=== PATIENT | female | born 1950 | race Caucasian/White ===

== ENCOUNTER 2018-11-01 10:42 | Emergency (ER) | payer OTHER, SELFPAY ==
[2018-11-01 11:01] VITALS: BP 156/76; PULSE 67; RESP 14; TEMP 36.8; O2SAT 96
--- NOTE | 2018-11-01 11:04 | ED_ITS ---
HPI - Fall <Ade Wu PA-C - Last Filed: 11/01/18 19:14> General Chief Complaint: Fall Stated Complaint: fell out of wheelchair, in pain Time Seen by Provider: 11/01/18 11:03 Source: patient Mode of arrival: wheelchair Limitations: no limitations History of Present Illness HPI Narrative: This 68 year old female who suffers from a neuro degenerative disorder primary lateral sclerosis comes in due to fall out of her wheelchair 6 days ago. She states that she had started to go up the ramp to her van, misjudged the angle and her chair pitched off sideways tipping onto the left side. She states she had her lower legs, face, and head primarily. She states it was not much distance, however she has had progressively worsening pain especially in her feet and lower legs. She states that she did have a bump on her head and has had some frontal headache. She denies any vision change. She states she had some nausea initially that has resolved. Headache is worse when supine but better than initial injury. She denies any pain in her upper extremities, neck, or back. Denies pain in her hips or thighs. She saw her PCP office today who advised to come in for x-rays. She notes that her feet always swell but the swelling has been worse. They are always red in color but she has noted bruising since the fall. She states that she took an extra mg of Valium last night (usually takes 1 mg, took 2 instead) that helped with spasms. She has not wanted any additional pain medication. Related Data Home Medications Medication Instructions Recorded Confirmed baclofen 10 mg PO BID 11/01/18 11/01/18 clonazepam 0.5 mg PO DAILY 11/01/18 11/01/18 conjugated estrogens [Premarin] 1 applic VAGINAL DIRECTED 11/01/18 dextromethorphan-quinidine 1 cap PO BID 11/01/18 11/01/18 [Nuedexta] diazepam 2 mg PO Q4H PRN 11/01/18 11/01/18 duloxetine 60 mg PO DAILY 11/01/18 11/01/18 hydrochlorothiazide 12.5 mg PO DAILY 11/01/18 11/01/18 lamotrigine 200 mg PO DAILY 11/01/18 11/01/18 losartan 50 mg PO DAILY 11/01/18 11/01/18 Allergies Allergy/AdvReac Type Severity Reaction Status Date / Time No Known Drug Allergies Allergy Verified 11/01/18 11:01 Review of Systems <Ade Wu PA-C - Last Filed: 11/01/18 19:14> Review of Systems ROS Unobtainable: All systems reviewed & are unremarkable except as noted in HPI and below Exam <Ade Wu PA-C - Last Filed: 11/01/18 19:14> Narrative Exam Narrative: GENERAL APPEARANCE: Patient sitting comfortably, in no distress. HEENT: Left yazidism/frontal junction there is a small patch of ecchymoses without palpable hematoma, tender. Left periorbital ecchymoses. No facial bony deformity or tenderness. PERRL, EOMI, normal ear canals, nasal and oral mucosa NECK: Supple LUNGS: Clear to auscultation bilaterally. HEART: Rate and rhythm regular without murmur, normal S1 and S2, no S3 or S4. NEUROLOGIC: Alert and oriented, appropriate speech, normal upper extremity coordination. Sensation grossly intact over the lower extremities MUSCULOSKELETAL: No point tenderness over the cervical, thoracic or lumbar spine. Full range of motion of the C-spine. No tenderness over the hips or thighs. No point tenderness or effusion over the knee joints. She is able to flex and extend the knees independently. Moderate tenderness over the left mid to distal fibular area and right tib-fib mid to distal. Mild tenderness over the ankles bilaterally where there is moderate effusion, mainly on the lateral sides. Right middle toes mildly tender along with distal medial metatarsals. Left 2nd and 3rd toes mild pain and distal metatarsal pain. DERMATOLOGIC: Facial ecchymoses as noted above, also patchy ecchymoses over the feet bilaterally, mainly middle toes VASCULAR: Bilateral feet are ruborous, pedal pulses intact, brisk cap refill. Moderate pedal edema bilaterally Initial Vital Signs Initial Vital Signs: Vital Signs Temperature 98.2 F 11/01/18 11:01 Pulse Rate 67 11/01/18 11:01 Respiratory Rate 14 11/01/18 11:01 Blood Pressure 156/76 H 11/01/18 11:01 Pulse Oximetry 96 11/01/18 11:01 <Yulia Casas DO - Last Filed: 11/02/18 07:29> Initial Vital Signs Initial Vital Signs: Vital Signs Temperature 98.2 F 11/01/18 11:01 Pulse Rate 67 11/01/18 11:01 Respiratory Rate 14 11/01/18 11:01 Blood Pressure 156/76 H 11/01/18 11:01 Pulse Oximetry 96 11/01/18 11:01 PFSH <Ade Wu PA-C - Last Filed: 11/01/18 19:14> Medical History (Updated 11/01/18 @ 13:32 by Angélica Reid RN) History of open sigmoidectomy (Chronic) CIRO (obstructive sleep apnea) (Chronic) Osteoporosis (Chronic) Hyperlipidemia (Chronic) Chronic constipation (Chronic) Degenerative disc disease, cervical (Chronic) Lateral sclerosis (Chronic) Neuro-degenerative disorders (Chronic) Surgical History (Updated 11/01/18 @ 12:54 by Ade Wu PA-C) History of laminectomy (Chronic) Social History (Updated 11/01/18 @ 12:54 by Ade Wu PA-C) Smoking Status: Former smoker Social History (Updated 11/01/18 @ 12:54 by Ade Wu PA-C) Smoking Status: Former smoker Course <Ade Wu PA-C - Last Filed: 11/01/18 19:14> Orders Ordered: ED Orders 11/01/18 11:19 CT head/brain wo con Stat XR ankle LT min 3V Stat XR ankle RT min 3V Stat XR foot LT min 3V Stat XR foot RT min 3V Stat XR tibia fibula LT 2V Stat XR tibia fibula RT 2V Stat Vital Signs - 8 hr 11/01/18 13:17 Pulse Rate 65 Respiratory Rate 17 Blood Pressure [Left Arm] 140/73 Pulse Oximetry 99 <Yulia Casas DO - Last Filed: 11/02/18 07:29> Orders Ordered: ED Orders 11/01/18 11:19 CT head/brain wo con Stat XR ankle LT min 3V Stat XR ankle RT min 3V Stat XR foot LT min 3V Stat XR foot RT min 3V Stat XR tibia fibula LT 2V Stat XR tibia fibula RT 2V Stat Vital Signs - 8 hr 11/01/18 13:17 Pulse Rate 65 Respiratory Rate 17 Blood Pressure [Left Arm] 140/73 Pulse Oximetry 99 MDM - Fall <Ade Wu PA-C - Last Filed: 11/01/18 19:14> Imaging Data CT scan - head: Radiologist's impression: [address] [address] [address] Scan Report Signed Patient: Arabella Novoa LMR#: [id number] : 8Acct:[id number] Age/Sex: 68 / FDate of Service: 11/01/18 Loc: ED Accession Number: [id number] Procedure: CT head/brain wo con Ordering Provider: Ade Wu P.A-C PROCEDURE: CT HEAD/BRAIN WO CON INDICATIONS: Status post fall, L. frontal/temporal periorbital ecchymosis. TECHNIQUE: Noncontrast 4.5 mm thick angled axial sections acquired from the foramen magnum to the vertex, with coronal and sagittal reformats. For radiation dose reduction, the following was used: automated exposure control, adjustment of mA and/or kV according to patient size. COMPARISON: None. FINDINGS: Image quality: Excellent. CSF spaces: Basal cisterns are patent. No extra-axial fluid collections. The ventricles are symmetric in size and shape. There is mild cerebral volume loss, with resultant ventricular and sulcal prominence. Brain: No intracranial hemorrhage, mass, or mass effect. There are subcortical, periventricular and deep white matter hypodensities consistent with mild chronic small vessel ischemic changes. There is intracranial internal carotid artery atherosclerosis. Skull and face: There is mild left periorbital soft tissue swelling. Calvarium and visualized facial bones appear intact, without suspicious lesions. Sinuses: Visualized sinuses and mastoids are clear. IMPRESSION: 1. No acute intracranial abnormality. 2. Mild chronic white matter small vessel ischemic changes and cerebral volume loss. Dictated by: Easton Krishna M.D. on 11/01/2018 at 11:49 Approved by: Easton Krishna M.D. on 11/01/2018 at 11:51 ankles: Radiologist's impression: [facility] DATE TYPE STATUS AUTHOR Hx 11/01/18 11:19 Matthews,Muneer 11/01/18 11:19 Matthews,Muneer 11/01/18 11:19 Matthews,Muneer 11/01/18 11:19 Matthews,Muneer 11/01/18 11:19 Easton Krishna 11/01/18 11:19 MathtewsJonasfrancesco 11/01/18 11:19 MatthewsPhuong rose Sherry L 68, 1950 REG ER, ED.LOC - Main ED: R06 52.163kg Fall Search Chart No Data to Display No Data to Display Today 11:01 Arabella Novoa 68 F [address] [address] XRay Report Signed Patient: Arabella Novoa LMR#: [id number] : 8Acct:[id number] Age/Sex: 68 / FDate of Service: 11/01/18 Loc: ED Accession Number: [id number] Procedure: XR ankle RT min 3V Ordering Provider: Ade Wu P.A-C PROCEDURE: XR ANKLE RT MIN 3V INDICATIONS: fall, pain TECHNIQUE: 3 views of the ankle were acquired. COMPARISON: None. FINDINGS: Bones: No fractures or dislocations. Ankle mortise is normally aligned. No suspicious bony lesions. Soft tissues: No tibiotalar joint effusion. Achilles tendon appears normal. IMPRESSION: No acute fracture. No osseous lesion. If symptoms and/or clinical suspicion for pathology persist, further assessment with repeat, or advanced imaging (e.g., CT, MRI, or bone scan) may be helpful for further assessment. Dictated by: Phuong Matthews M.D. on 11/01/2018 at 11:32 Approved by: Phuong Matthews M.D. on 11/01/2018 at 11:[address] [address] XRay Report Signed Patient: Arabella Novoa LMR#: [id number] : 8Acct:[id number] Age/Sex: 68 / FDate of Service: 11/01/18 Loc: ED Accession Number: [id number] Procedure: XR ankle LT min 3V Ordering Provider: Ade Wu P.A-C PROCEDURE: XR ANKLE LT MIN 3V INDICATIONS: fall, pain TECHNIQUE: 3 views of the ankle were acquired. COMPARISON: None. FINDINGS: Bones: No fractures or dislocations. Ankle mortise is normally aligned. No suspicious bony lesions. Soft tissues: No tibiotalar joint effusion. Achilles tendon appears normal. IMPRESSION: No acute fracture. No osseous lesion. If symptoms and/or clinical suspicion for pathology persist, further assessment with repeat, or advanced imaging (e.g., CT, MRI, or bone scan) may be helpful for further assessment. Dictated by: Phuong Matthews M.D. on 11/01/2018 at 11:31 Approved by: Phuong Matthews M.D. on 11/01/2018 at 11:32 bilat tib fib: Radiologist's impression: [address] [address] XRay Report Signed Patient: Arabella Novoa R#: [id number] : 1950cct:[id number] Age/Sex: 68 / FDate of Service: 11/01/18 Loc: ED Accession Number: [id number] Procedure: XR tibia fibula RT 2V Ordering Provider: Ade Wu P.A-C PROCEDURE: XR TIBIA FUBULA RT 2V INDICATIONS: fall, pain TECHNIQUE: 2 views of the tibia and fibula were acquired. COMPARISON: None. FINDINGS: Bones: No fractures or dislocations. No suspicious bony lesions. Soft tissues: No suspicious soft tissue calcifications or masses. IMPRESSION: No acute fracture. No osseous lesion. If symptoms and/or clinical suspicion for pathology persist, further assessment with repeat, or advanced imaging (e.g., CT, MRI, or bone scan) may be helpful for further assessment. Dictated by: Phuong Matthews M.D. on 11/01/2018 at 11:36 Approved by: Phuong Matthews M.D. on 11/01/2018 at 11:[address] [address] XRay Report Signed Patient: Arabella Novoa LMR#: [id number] : 8Acct:[id number] Age/Sex: 68 / FDate of Service: 11/01/18 Loc: ED Accession Number: [id number] Procedure: XR tibia fibula LT 2V Ordering Provider: Ade Wu P.A-C PROCEDURE: XR TIBIA FIBULA RT 2V INDICATIONS: fall pain TECHNIQUE: 2 views of the tibia and fibula were acquired. COMPARISON: None. FINDINGS: Bones: No fractures or dislocations. No suspicious bony lesions. Soft tissues: No suspicious soft tissue calcifications or masses. IMPRESSION: No acute fracture. No osseous lesion. If symptoms and/or clinical suspicion for pathology persist, further assessment with repeat, or advanced imaging (e.g., CT, MRI, or bone scan) may be helpful for further assessment. Dictated by: Phuong Matthews M.D. on 11/01/2018 at 11:35 Approved by: Phuong Matthews M.D. on 11/01/2018 at 11:35 feet bilat: Radiologist's impression: [address] [address] XRay Report Signed Patient: Arabella Novoa R#: [id number] : 8Acct:[id number] Age/Sex: 68 / FDate of Service: 11/01/18 Loc: ED Accession Number: [id number] Procedure: XR foot RT min 3V Ordering Provider: Ade Wu P.A-C PROCEDURE: XR FOOT RT MIN 3V INDICATIONS: fall, pain TECHNIQUE: 3 views of the foot were acquired. COMPARISON: None. FINDINGS: Bones: No fractures or dislocations. No suspicious bony lesions. Soft tissues: No tibiotalar joint effusion. Achilles tendon appears normal. IMPRESSION: No acute fracture. No osseous lesion. If symptoms and/or clinical suspicion for pathology persist, further assessment with repeat, or advanced imaging (e.g., CT, MRI, or bone scan) may be helpful for further assessment. Dictated by: Phuong Matthews M.D. on 11/01/2018 at 11:34 Approved by: Phuong Matthews M.D. on 11/01/2018 at 11:35 Arabella Novoa L 68 F [address] [address] XRay Report Signed Patient: Arabella Novoa LMR#: [id number] : 8Acct:[id number] Age/Sex: 68 / FDate of Service: 11/01/18 Loc: ED Accession Number: [id number] Procedure: XR foot LT min 3V Ordering Provider: Ade Wu P.A-C PROCEDURE: XR FOOT LT MIN 3V INDICATIONS: fall, pain TECHNIQUE: 3 views of the foot were acquired. COMPARISON: None. FINDINGS: Bones: No fractures or dislocations. No suspicious bony lesions. Soft tissues: No tibiotalar joint effusion. Achilles tendon appears normal. IMPRESSION: No acute fracture. No osseous lesion. If symptoms and/or clinical suspicion for pathology persist, further assessment with repeat, or advanced imaging (e.g., CT, MRI, or bone scan) may be helpful for further assessment. Dictated by: Phuong Matthews M.D. on 11/01/2018 at 11:33 Approved by: Phuong Matthews M.D. on 11/01/2018 at 11:34 Discharge Plan Departure Patient Disposition: Home Clinical Impression: Fall (on)(from) incline, initial encounter, Contusion of multiple sites, History of open sigmoidectomy Discharge Date/Time: 11/01/18 13:32 Interventions: ED Discharge Assessment Last Done: 11/01/18 13:32 Instructions: DI for Ankle Pain, DI for Foot Sprain Activity Restrictions/Additional Instructions: As we talked about, your x-rays do not show any broken bone or acute problem today, however you have significant swelling and bruising, and from the twisting you described to me it is likely that you sprained these areas as well. Please follow-up with your PCP next week for recheck as you may need additional studies if you are not doing better. Use the compression wraps as helpful for pain and swelling. Continue your additional diazepam if needed for spasm. Prescriptions: No Action clonazepam 0.5 mg Tablet 0.5 mg PO DAILY RF: 0 diazepam 2 mg Tablet 2 mg PO Q4H PRN (Reason: Anxiety) RF: 0 baclofen 10 mg Tablet 10 mg PO BID RF: 0 hydrochlorothiazide 12.5 mg Capsule 12.5 mg PO DAILY RF: 0 duloxetine 60 mg Capsule,Delayed Release(Dr/Ec) 60 mg PO DAILY RF: 0 losartan 50 mg Tablet 50 mg PO DAILY RF: 0 lamotrigine 200 mg Tablet 200 mg PO DAILY RF: 0 Premarin 0.625 mg/gram Cream 1 applic vaginal DIRECTED RF: 0 Nuedexta 20-10 mg Capsule 1 cap PO BID RF: 0 Referrals: Sukhdeep Cintron MD [Primary Care Provider] - <Yulia Casas DO - Last Filed: 11/02/18 07:29> Cosign ED Attending Cosignature Attestation: I was immediately available in the department for consultation. Documentation has been reviewed. I agree with assessment and plan.
--- NOTE | 2018-11-01 11:19 | DI.RAD.S_ITS ---
PROCEDURE: XR TIBIA FUBULA RT 2V INDICATIONS: fall, pain TECHNIQUE: 2 views of the tibia and fibula were acquired. COMPARISON: None. FINDINGS: Bones: No fractures or dislocations. No suspicious bony lesions. Soft tissues: No suspicious soft tissue calcifications or masses. IMPRESSION: No acute fracture. No osseous lesion. If symptoms and/or clinical suspicion for pathology persist, further assessment with repeat, or advanced imaging (e.g., CT, MRI, or bone scan) may be helpful for further assessment. Dictated by: Phuong Matthews M.D. on 11/01/2018 at 11:36 Approved by: Phuong Matthews M.D. on 11/01/2018 at 11:36
--- NOTE | 2018-11-01 11:19 | DI.RAD.S_ITS ---
PROCEDURE: XR FOOT LT MIN 3V INDICATIONS: fall, pain TECHNIQUE: 3 views of the foot were acquired. COMPARISON: None. FINDINGS: Bones: No fractures or dislocations. No suspicious bony lesions. Soft tissues: No tibiotalar joint effusion. Achilles tendon appears normal. IMPRESSION: No acute fracture. No osseous lesion. If symptoms and/or clinical suspicion for pathology persist, further assessment with repeat, or advanced imaging (e.g., CT, MRI, or bone scan) may be helpful for further assessment. Dictated by: Phuong Matthews M.D. on 11/01/2018 at 11:33 Approved by: Phuong Matthews M.D. on 11/01/2018 at 11:34
--- NOTE | 2018-11-01 11:19 | DI.RAD.S_ITS ---
PROCEDURE: XR ANKLE RT MIN 3V INDICATIONS: fall, pain TECHNIQUE: 3 views of the ankle were acquired. COMPARISON: None. FINDINGS: Bones: No fractures or dislocations. Ankle mortise is normally aligned. No suspicious bony lesions. Soft tissues: No tibiotalar joint effusion. Achilles tendon appears normal. IMPRESSION: No acute fracture. No osseous lesion. If symptoms and/or clinical suspicion for pathology persist, further assessment with repeat, or advanced imaging (e.g., CT, MRI, or bone scan) may be helpful for further assessment. Dictated by: Phuong Matthews M.D. on 11/01/2018 at 11:32 Approved by: Phuong Matthews M.D. on 11/01/2018 at 11:32
--- NOTE | 2018-11-01 11:19 | DI.RAD.S_ITS ---
PROCEDURE: XR FOOT RT MIN 3V INDICATIONS: fall, pain TECHNIQUE: 3 views of the foot were acquired. COMPARISON: None. FINDINGS: Bones: No fractures or dislocations. No suspicious bony lesions. Soft tissues: No tibiotalar joint effusion. Achilles tendon appears normal. IMPRESSION: No acute fracture. No osseous lesion. If symptoms and/or clinical suspicion for pathology persist, further assessment with repeat, or advanced imaging (e.g., CT, MRI, or bone scan) may be helpful for further assessment. Dictated by: Phuong Matthews M.D. on 11/01/2018 at 11:34 Approved by: Phuong Matthews M.D. on 11/01/2018 at 11:35
--- NOTE | 2018-11-01 11:19 | DI.RAD.S_ITS ---
PROCEDURE: XR TIBIA FIBULA RT 2V INDICATIONS: fall pain TECHNIQUE: 2 views of the tibia and fibula were acquired. COMPARISON: None. FINDINGS: Bones: No fractures or dislocations. No suspicious bony lesions. Soft tissues: No suspicious soft tissue calcifications or masses. IMPRESSION: No acute fracture. No osseous lesion. If symptoms and/or clinical suspicion for pathology persist, further assessment with repeat, or advanced imaging (e.g., CT, MRI, or bone scan) may be helpful for further assessment. Dictated by: Phuong Matthews M.D. on 11/01/2018 at 11:35 Approved by: Phuong Matthews M.D. on 11/01/2018 at 11:35
--- NOTE | 2018-11-01 11:19 | DI.CT.S_ITS ---
PROCEDURE: CT HEAD/BRAIN WO CON INDICATIONS: Status post fall, L. frontal/temporal periorbital ecchymosis. TECHNIQUE: Noncontrast 4.5 mm thick angled axial sections acquired from the foramen magnum to the vertex, with coronal and sagittal reformats. For radiation dose reduction, the following was used: automated exposure control, adjustment of mA and/or kV according to patient size. COMPARISON: None. FINDINGS: Image quality: Excellent. CSF spaces: Basal cisterns are patent. No extra-axial fluid collections. The ventricles are symmetric in size and shape. There is mild cerebral volume loss, with resultant ventricular and sulcal prominence. Brain: No intracranial hemorrhage, mass, or mass effect. There are subcortical, periventricular and deep white matter hypodensities consistent with mild chronic small vessel ischemic changes. There is intracranial internal carotid artery atherosclerosis. Skull and face: There is mild left periorbital soft tissue swelling. Calvarium and visualized facial bones appear intact, without suspicious lesions. Sinuses: Visualized sinuses and mastoids are clear. IMPRESSION: 1. No acute intracranial abnormality. 2. Mild chronic white matter small vessel ischemic changes and cerebral volume loss. Dictated by: Easton Krishna M.D. on 11/01/2018 at 11:49 Approved by: Easton Krishna M.D. on 11/01/2018 at 11:51
--- NOTE | 2018-11-01 11:19 | DI.RAD.S_ITS ---
PROCEDURE: XR ANKLE LT MIN 3V INDICATIONS: fall, pain TECHNIQUE: 3 views of the ankle were acquired. COMPARISON: None. FINDINGS: Bones: No fractures or dislocations. Ankle mortise is normally aligned. No suspicious bony lesions. Soft tissues: No tibiotalar joint effusion. Achilles tendon appears normal. IMPRESSION: No acute fracture. No osseous lesion. If symptoms and/or clinical suspicion for pathology persist, further assessment with repeat, or advanced imaging (e.g., CT, MRI, or bone scan) may be helpful for further assessment. Dictated by: Phuong Matthews M.D. on 11/01/2018 at 11:31 Approved by: Phuong Matthews M.D. on 11/01/2018 at 11:32
--- NOTE | 2018-11-01 11:38 | PC.NURSE ---
At baseline neuro functioning.
[2018-11-01 13:17] VITALS: BP 140/73; PULSE 65; RESP 17; O2SAT 99
== END 2018-11-01 13:32 | disposition home or self-care (01) ==
PROVIDERS: Emergency Provider Internal Medicine; PCP Family Medicine
DX: S00.83XA Contusion of other part of head, initial encounter (principal); M79.605 Pain in left leg; M79.604 Pain in right leg; R51 Headache; Z98.890 Other specified postprocedural states; W05.0XXA Fall from non-moving wheelchair, initial encounter; M25.572 Pain in left ankle and joints of left foot; M25.571 Pain in right ankle and joints of right foot
CPT/HCPCS: 70450; 73590; 73610; 73630; 99282; 99284

== ENCOUNTER → 2021-05-25 08:35 | Outpatient (CLI) | payer MEDICARE, SELFPAY ==
[2021-05-25 20:00] LABS: COVID19 - ORCAS (NP or Nasal) Negative (Negative)
== END ==
PROVIDERS: PCP Family Medicine; Visit Provider Physician Assistant
DX: Z20.822 Contact with and (suspected) exposure to COVID-19 (principal); R05.9 Cough, unspecified
CPT/HCPCS: C9803; U0003

== ENCOUNTER → 2021-06-15 10:14 | Outpatient (CLI) | payer MEDICARE, SELFPAY ==
[2021-06-15 19:53] LABS: COVID19 - ORCAS (NP or Nasal) Negative (Negative)
== END ==
PROVIDERS: PCP Family Medicine; Visit Provider Physician Assistant
DX: Z20.822 Contact with and (suspected) exposure to COVID-19 (principal)
CPT/HCPCS: U0003

== ENCOUNTER → 2022-01-06 11:30 | Outpatient (CLI) | payer MEDICARE, SELFPAY ==
--- NOTE | 2022-01-06 | DI.US.S_ITS ---
PROCEDURE: US CAROTID DOPPLER BI INDICATIONS: CAROTID STENOSIS TECHNIQUE: Color and pulse Doppler interrogation was performed of both carotid systems, with image documentation and velocity measurements. COMPARISON: None. FINDINGS: Stenosis calculations are based on SRU (Society of Radiologists in Ultrasound) criteria. Right side: Brachial blood pressure: 131/69 mm Hg. Common carotid artery peak systolic velocity: 52 cm/sec. Internal carotid artery peak systolic velocity: 88 cm/sec. Internal carotid artery end diastolic velocity: 28 cm/sec. External carotid artery peak systolic velocity: 90 cm/sec. ICA/CCA peak systolic ratio: 1.5 . Gomes scale imaging description: Moderate plaque Percent internal carotid artery stenosis: Less than 50% . Vertebral artery: Flow direction is antegrade. Left side: Brachial blood pressure: 118/68 mm Hg. Common carotid artery peak systolic velocity: 80 cm/sec. Internal carotid artery peak systolic velocity: 103 cm/sec. Internal carotid artery end diastolic velocity: 35 cm/sec. External carotid artery peak systolic velocity: 84 cm/sec. ICA/CCA peak systolic ratio: 1.3 . Gomes scale imaging description: Moderate scattered plaque. Percent internal carotid artery stenosis: Less than 50% . Vertebral artery: Flow direction is antegrade. IMPRESSION: Less than 50% bilateral internal carotid artery stenosis. Dictated by: Gigi Hills [facility] Interpreted: Marija Campos MD on 01/06/2022 at 13:05 Transcribed by: STACY on 01/06/2022 at 13:06 Approved by: Marija Campos M.D. on 01/06/2022 at 15:27
--- NOTE | 2022-01-06 | DI.US.S_ITS ---
PROCEDURE: US RENAL COMPLETE INDICATIONS: KIDNEY STONE TECHNIQUE: Real-time scanning was performed of the kidneys and bladder, with image documentation. COMPARISON: None. FINDINGS: Kidneys: Atrophy of the right kidney measuring 6.5 cm long; left kidney measures 10.2 cm long. Right renal cortical thickness is 1.1 cm; left renal cortical thickness is 1.6 cm. Renal cortical echotexture is normal. No hydronephrosis. 2 nonobstructing left renal calcifications, largest measuring 6.3 mm. . No suspicious solid mass lesions. Bladder: Urinary bladder decompressed and suboptimally visualized. Miscellaneous: No free pelvic fluid. IMPRESSION: 1. 2 non-obstructing left renal calcifications. 2. Atrophy of the right kidney and 6.5 cm in length. Dictated by: Gigi PAULSON Interpreted: Marija Campos MD on 01/06/2022 at 13:03 Transcribed by: STACY on 01/06/2022 at 13:05 Approved by: Marija Campos M.D. on 01/06/2022 at 15:26
--- NOTE | 2022-01-06 | DI.MG.S_ITS ---
BILATERAL DIGITAL SCREENING MAMMOGRAM 3D/2D WITH CAD: 01/06/2022 CLINICAL: Routine screening. Comparison is made to exams dated: 07/31/2018 mammogram, 02/14/2016 mammogram, and 01/12/2016 mammogram - [facility]. Both breasts are heterogeneously dense, which may obscure small masses (category c / 51-75% glandular tissue). Current study was also evaluated with a Computer Aided Detection (CAD) system. No significant masses, calcifications, or other findings are seen in either breast. There has been no significant interval change. IMPRESSION: NEGATIVE There is no mammographic evidence of malignancy. A 1 year screening mammogram is recommended. Based on the Tyrer Cuzick model (a risk assessment model) the patient's lifetime risk is 5.5% and her 10 year risk is 4.5%. According to the ACR, ACS, and NCCN guidelines, an annual breast MRI exam along with mammogram is recommended if the patient's lifetime risk is 20% or greater. This exam was interpreted at Station ID: [id number]. NOTE: For mammograms, a report in lay terms will be sent to the patient. Approximately 15% of breast malignancies will not be visualized mammographically. In the management of a palpable breast mass, a negative mammogram must not discourage biopsy of a clinically suspicious lesion. Electronically Signed By: Erwin bolden/michael:01/06/2022 16:25:20 letter sent: Normal Exam ACR BI-RADS Category 1: Negative 3341F
== END ==
PROVIDERS: PCP Family Medicine; Referring Provider Family Medicine; Visit Provider Family Medicine
DX: Z12.31 Encounter for screening mammogram for malignant neoplasm of breast (principal); I65.23 Occlusion and stenosis of bilateral carotid arteries; N20.0 Calculus of kidney; N26.1 Atrophy of kidney (terminal)
CPT/HCPCS: 76770; 77063; 77067; 93880

== ENCOUNTER 2022-05-16 12:16 | Day surgery (SDC) | payer MEDICARE, SELFPAY ==
--- NOTE | 2022-05-16 | PATH_ITS ---
[facility] Accession Number: [id number] . 01 Material submitted: . perianal area - PERIANAL TISSUE . 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 No evidence of invasive carcinoma. MRV 05/19/2022 1614 Local . 01 Electronically signed: . Blanca Pollack MD, Pathologist NPI- [id number] . 01 Gross description: . PERIANAL TISSUE: Received in formalin are multiple fragment(s) of pinto, soft tissue measuring 1.0 x 0.7 x 0.1 cm in aggregate submitted entirely in 1 cassette(s) /CPE 05/17/2022 0855 Local . 01 Microscopic: . A D2-40 immunohistochemical stain was performed to highlight lymphatics. Additional levels were also examined. There is no definite evidence of invasion. . * This test was developed and its performance characteristics determined by [facility]. It has not been cleared or approved by the U.S. Food and Drug Administration. The FDA has determined that such clearance or approval is not necessary. This test is used for clinical purposes. It should not be regarded as investigational or for research. . 01 Pathologist provided ICD-10: K62.5, D01.3 . 01 CPT . 570052, C93182 Specimen Comment: A courtesy copy of this report has been sent to [phone] Performed at: 01 [facility] [address] [place] [address], [place], [place] [id number] MD Easton Tiraod MD Phone: [phone]
[2022-05-16] MEDS: LACTATED RINGERS 1,000 ML 200 ML IV (13:12)
[2022-05-16 13:14] VITALS: BP 138/68; PULSE 66; RESP 18; TEMP 36.8; O2SAT 99; BMI 19.5
--- NOTE | 2022-05-16 13:34 | PM.HP.1 ---
History of Present Illness History of Present Illness Date Patient Seen: 05/16/22 Time Patient Seen: 13:34 Chief complaint: SDC Narrative: 72-year-old woman with rectal bleeding here for diagnostic colonoscopy and possible hemorrhoidal banding. No significant interval changes in health. She continues to have rectal bleeding bright nature. Please refer to the H&P from March 2022 for further detail. Patient History Medical History Adductor spastic dysphonia Bilateral carpal tunnel syndrome Chronic constipation Contracture, left knee Degenerative disc disease, cervical Dependence on wheelchair WISE (dyspnea on exertion) Dysarthria Emotional lability Essential (primary) hypertension Frequent falls History of open sigmoidectomy History of urinary incontinence Hyperlipidemia Lateral sclerosis Major depressive disorder, recurrent, moderate Nasal congestion Neuro-degenerative disorders Neuromuscular disease Neuropathy Oropharyngeal dysphagia CIRO (obstructive sleep apnea) Osteoporosis Other disorders of lung Other intervertebral disc displacement, lumbar region 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 Postmenopausal atrophic vaginitis Presence of other specified devices Sciatica, unspecified side Scoliosis (and kyphoscoliosis), idiopathic Spasticity Urge incontinence Surgical History History of laminectomy Family & Social History Family History Mother Insomnia Depression Anxiety Family/Other Diabetes mellitus Social History: household members none lives independently Yes Tobacco & Substance use: Smoking Status Former smoker alcohol intake never alcohol intake frequency holiday/special occasion Substance Use Type does not use Meds Home Medications and Allergies Home Medications Medication Instructions Recorded Confirmed Type conjugated estrogens 0.625 mg/gram 1 applic vaginal DIRECTED 11/01/18 05/16/22 History vaginal cream (Premarin) duloxetine 60 mg capsule,delayed 60 mg PO DAILY 11/01/18 05/16/22 History release hydrochlorothiazide 12.5 mg capsule 12.5 mg PO DAILY 11/01/18 05/16/22 History lamotrigine 200 mg tablet 200 mg PO DAILY 11/01/18 05/16/22 History losartan 50 mg tablet 50 mg PO DAILY 11/01/18 05/16/22 History aspirin 81 mg tablet,delayed 81 mg PO DAILY 10/04/20 05/16/22 History release (Roberto Low Dose Aspirin) coenzyme Q10 PO 10/04/20 03/30/22 History diazepam 2 mg tablet 2 mg PO Q8H PRN Anxiety 10/04/20 05/16/22 History omeprazole 40 mg capsule,delayed 40 mg PO DAILY 10/04/20 05/16/22 History release Allergies Allergy/AdvReac Type Severity Reaction Status Date / Time No Known Drug Allergies Allergy Verified 05/16/22 12:56 Exam Vital Signs (past 8 hours): - 05/16/22 13:14 Temperature 98.2 F Pulse Rate 66 Respiratory Rate 18 Blood Pressure 138/68 Pulse Oximetry 99 Oxygen Delivery Method Room Air Oxygen Delivery Method Room Air Narrative Exam Narrative: General elderly woman alert oriented Abdomen soft nontender nondistended Assessment & Plan Assessment and plan (1) Rectal bleeding: Status: Acute Assessment & Plan narrative: 72-year-old woman with rectal bleeding here for diagnostic colonoscopy and possible hemorrhoidal banding. Overview of the procedure was discussed patient. Procedural risks including bleeding, missed diagnosis, intestinal perforation, anesthetic complication were discussed. Questions answered she is in agreement with this plan Time Spent With Patient Critical Care time: I spent a total of [] minutes of critical care time on this patient's care today; this time is exclusive of procedural time.
[2022-05-16 13:52] LABS: COVID19 -Nasal RAPID Negative (Negative)
--- NOTE | 2022-05-16 13:59 | PM.OP.COLON ---
Operative Date/Time/Diagnoses Date of procedure: 05/16/22 Time of procedure: 13:59 Pre-op diagnosis: Rectal bleeding Post-op diagnosis: same Procedure & Clinicians Study performed: Colonoscopy and hemorrhoidal banding Same procedure as scheduled: Yes Indications: Rectal bleeding Procedure Notes Procedure in detail: The history and physical was performed/updated and the patient is ASA class is 3. The procedure was discussed in detail with the patient. Potential risks complications including infection, bleeding, missed diagnosis, perforation, need for surgery, and were explained. Their questions were answered and informed consent was obtained. Patient was brought to the procedure room and placed standard monitoring equipment. The patient's vital signs were monitored continuously throughout the entire procedure. Prior to starting time-out was performed. The patient was placed in the left lateral recumbent position. Procedural sedation was administered by anesthesia. Examination began with a thorough inspection of the perianal. There was an ulcerated 3 cm diameter raised lesion on the perianal tissue posterior right which was biopsied with forceps. The colonoscopy scope was then placed into the anal canal and was advanced to the cecum, which was identified by the ileocecal valve, and the confluence of the taenia. The scope was then slowly withdrawn examining colon thoroughly in all directions, irrigating it of any residual stool. FINDINGS 1. Perianal mass/lesion 2. No polyps 3. Minimal internal hemorrhoids The patient tolerated the procedure well. They will be discharged once criteria are met. The prep was of good/excellent quality. The withdrawl time was 12 minutes. Specimen(s): other (Perianal tissue) Impression: Perianal mass/abnormality versus extensive fissure Post-procedure Recommendations: High fiber diet Plan for aftercare: Will notify with biopsy results Disposition: same day surgery
[2022-05-16 14:34] VITALS: BP 108/55; PULSE 65; RESP 16; TEMP 36.2; O2SAT 100
[2022-05-16 14:39] VITALS: BP 127/75; PULSE 62; RESP 16; TEMP 36.8; O2SAT 98
[2022-05-16 14:48] VITALS: BP 106/60; PULSE 61; RESP 16; O2SAT 98
[2022-05-16 14:55] VITALS: BP 117/66; PULSE 65; RESP 18; TEMP 36.4; O2SAT 98
[2022-05-16 16:20] VITALS: BP 156/73; PULSE 72; RESP 20; TEMP 36.4; O2SAT 97
--- NOTE | 2022-05-16 16:50 | SUR.PHASEII ---
Report given to
== END 2022-05-16 17:35 | disposition home or self-care (01) ==
PROVIDERS: PCP Family Medicine; Referring Provider Surgery; Visit Provider Surgery
PROC: 0DJD8ZZ Inspection of Lower Intestinal Tract, Via Natural or Artificial Opening Endoscopic (ICD-10-PCS; CPT 45378; principal; 2022-05-16 12:45)
DX: D01.3 Carcinoma in situ of anus and anal canal (principal); K64.8 Other hemorrhoids; Z20.822 Contact with and (suspected) exposure to COVID-19
CPT/HCPCS: 45380; 87635; C9803; J2704

== ENCOUNTER → 2023-12-25 11:33 | Outpatient (CLI) | payer MEDICARE, SELFPAY ==
--- NOTE | 2023-12-25 11:34 | DI.MRI.S_ITS ---
PROCEDURE: MR ANKLE LT WO CON INDICATIONS: pain/swelling left foot. osteoporosis. paraparesis left side TECHNIQUE: Noncontrast sagittal T1 spin echo and T2 fast spin echo with fat saturation, axial proton density fast spin echo and T2 fast spin echo with fat saturation, coronal T1 spin echo and T2 fast spin echo with fat saturation through the ankle/hindfoot. COMPARISON: None. FINDINGS: Image quality: Excellent. Bones and joints: Diffuse soft tissue swelling and edema throughout distal lower leg extending to midfoot and hindfoot is seen. No discrete drainable fluid collection is noted. [id number] midfoot and hindfoot joint osteoarthritic changes are seen with joint space narrowing and subchondral sclerosis. There is no marrow edema. No fracture or dislocation. Small osteochondral injury involving medial weight-bearing portion of talar dome is seen measures 3 mm in size. 4 mm osteochondral injury involving posterior medial aspect of distal tibial plafond is also seen. No significant joint effusion or intra-articular loose bodies. Medial structures: The posterior tibialis, flexor digitorum longus, and flexor hallucis longus tendons are intact. The posterior tibial neurovascular bundle appears normal within the tarsal tunnel, without extrinsic mass effect. The deltoid ligament and spring ligament are grossly intact. Lateral structures: The anterior talofibular ligament appears thickened with intrasubstance T2 hyperintense signal. The calcaneofibular, and posterior talofibular ligaments appear intact. More superiorly, the anterior and posterior tibiofibular ligaments appear intact, as is the intermalleolar ligament. The tibiofibular syndesmosis is normal in width at 2 mm or less. The peroneus longus and brevis tendons demonstrate normal location and morphology. Adjacent bony peroneal tubercle and retrotrochlear prominence are normal in size. The sinus tarsi demonstrates normal fatty signal, without edema, fibrosis, or cyst formation. Visualized sinus tarsi components (cervical ligament, interosseous talocalcaneal ligament, roots of the inferior extensor retinaculum) appear normal. Anterior structures: The tibialis anterior, extensor hallucis longus, and extensor digitorum longus tendons appear intact. The dorsal talonavicular ligament appears intact. Posterior and plantar structures: Achilles tendon is intact. Medial and lateral bands of the plantar fascia are of normal thickness. No abductor digiti quinti muscle atrophy to suggest Stovall neuropathy. IMPRESSION: 1. Diffuse soft tissue swelling in distal lower leg extending to hindfoot and midfoot. No discrete drainable fluid collection. 2. [id number] midfoot and hindfoot joint osteoarthritis most notably involving tibiotalar joint with small osteochondral injuries involving medial weight-bearing portion of talar dome and posterior medial aspect of distal tibial plafond. No fracture or dislocation. Small joint effusion, no loose bodies. 3. Low-grade ATFL sprain/intrasubstance partial-thickness tear. No full-thickness ankle ligament rupture. 4. Ankle tendons are grossly intact. Dictated by: Aristeo Bravo M.D. on 12/25/2023 at 21:08 Approved by: Aristeo Bravo M.D. on 12/25/2023 at 21:16
--- NOTE | 2023-12-25 11:34 | DI.MRI.S_ITS ---
PROCEDURE: MRFOOT LT WO CON INDICATIONS: pain/swelling left foot. osteoporosis. paraparesis left side TECHNIQUE: Multiphasic, multisequence MRI of the forefoot was performed, without intravenous contrast administration. COMPARISON: [facility] ([facility]), CR, XR FOOT LT MIN 3V, 12/03/2023, 9:37. FINDINGS: Image quality: Excellent. Bones and joints: No bone marrow contusions or metatarsal stress fractures. Osteoarthritic changes are noted throughout midfoot and forefoot joints more notably involving MTP joints. No suspicious bony lesions. Soft tissues: Marked soft tissue edema and swelling over dorsal aspect of midfoot and forefoot is seen. No discrete drainable fluid collection is identified. No gross soft tissue mass. The visualized plantar foot muscles demonstrate normal signal and bulk. Visualized flexor and extensor tendons appear intact, without tenosynovitis. The distal insertions of the peroneus brevis and longus tendons appear intact. The principal Lisfranc ligament appears intact. No soft tissue ganglion cysts or bursal fluid collections. Sagittal images demonstrate no evidence for plantar plate tears. IMPRESSION: 1. Significant soft tissue edema and swelling over dorsal aspect of midfoot and forefoot suggestive of cellulitis. No discrete drainable abscess collection. 2. Mild midfoot and forefoot joint osteoarthritis. No fracture or dislocation. No metatarsal stress fractures. No suspicious bony lesions. 3. No plantar foot muscle signal abnormalities. Extensor and flexor tendons are grossly intact. Lisfranc ligament is intact. Dictated by: Aristeo Bravo M.D. on 12/25/2023 at 21:05 Approved by: Aristeo Bravo M.D. on 12/25/2023 at 21:08
== END ==
PROVIDERS: PCP Family Medicine; Referring Provider Family Medicine; Visit Provider Family Medicine
DX: G12.23 Primary lateral sclerosis (principal); M19.072 Primary osteoarthritis, left ankle and foot; S93.492A Sprain of other ligament of left ankle, initial encounter; M79.672 Pain in left foot; M81.0 Age-related osteoporosis without current pathological fracture; M79.89 Other specified soft tissue disorders; M25.472 Effusion, left ankle
CPT/HCPCS: 73718; 73721

== ENCOUNTER → 2024-01-16 14:04 | Outpatient (CLI) | payer MEDICARE, SELFPAY ==
[2024-01-16 19:34] LABS: D Dimer 1322 ng/ml (<500)
[2024-01-16 19:54] LABS: Add Manual Diff / Slide Review NO; Basophils Absolute Auto 0 /uL (0-100); Basophils Percent Auto 0.7 % (0-2); Eosinophils Absolute Auto 0 /uL (0-450); Eosinophils Percent Auto 0.5 % (2-4); Hematocrit 34.6 % (36-46); Hemoglobin 11.2 g/dL (12.0-16.0); Lymphocytes Absolute Auto 900 /uL (1100-4500); Lymphocytes Percent Auto 18.9 % (25-40); Mean Corpuscular HGB Conc 32.4 % (30-36); Mean Corpuscular Hemoglobin 26.7 PG (26-34); Mean Corpuscular Volume 82.6 fL (80-100); Monocytes Absolute Auto 300 /uL (0-900); Monocytes Percent Auto 7.1 % (3-14); Neutrophils Absolute Auto 3300 /uL (1500-7000); Neutrophils Percent Auto 72.8 % (50-75); Platelet Count 351 X10^3/uL (150-400); Red Blood Cell Count 4.18 X10^6/uL (4.0-5.2); Red Cell Distribution Width 20.8 % (11.6-14.8); White Blood Cell Count 4.6 X10^3/uL (4.5-11.0)
[2024-01-16 19:58] LABS: HEMOLYSIS < 15 (0-50); Iron 69 ug/dL (37-170)
[2024-01-16 19:59] LABS: BUN Creatinine Ratio 24.4 (6-22); Blood Urea Nitrogen 21 mg/dL (7-17); Calcium 9.6 mg/dL (8.4-10.2); Carbon Dioxide 29 mmol/L (22-32); Chloride 99 mmol/L (98-107); Estimated Glomerular Filt Rate > 60 mL/min (>60); Glucose 82 mg/dL (80-110); HEMOLYSIS < 15 (0-50); Magnesium 2.1 mg/dL (1.6-2.3); Phosphorous 4.2 mg/dL (2.8-4.1); Potassium 4.2 mmol/L (3.4-5.1); Sodium 135 mmol/L (137-145)
[2024-01-16 20:00] LABS: C-Reactive Protein Quant < 0.5 mg/dL (<1.0)
[2024-01-16 20:07] LABS: Anisocytosis 2+; LDL Cholesterol Direct 134 mg/dL (<100)
[2024-01-16 20:15] LABS: Percent Iron Saturation 19 % (15-50); Total Iron Binding Capacity 364 ug/dL (265-497); Transferrin 295 mg/dL (206-381)
[2024-01-16 20:29] LABS: Erythrocyte Sedimentation Rate 34 MM/HR (0-20)
[2024-01-16 20:33] LABS: Ferritin 11 ng/mL (11-264)
[2024-01-16 20:35] LABS: TSH w/ Reflex to FT4 0.56 uIU/mL (0.47-4.68)
[2024-01-16 21:04] LABS: Vitamin D 25 Hydroxy (D3) 38.4 ng/mL (30.0-100.0)
[2024-01-18 18:38] LABS: Ionized Calcium 4.9 mg/dL (4.5-5.6)
== END ==
PROVIDERS: Psychiatry & Neurology Neurology; PCP Family Medicine; Visit Provider Family Medicine
DX: M79.673 Pain in unspecified foot (principal); R20.9 Unspecified disturbances of skin sensation; M81.0 Age-related osteoporosis without current pathological fracture; D50.9 Iron deficiency anemia, unspecified; R53.83 Other fatigue; I10 Essential (primary) hypertension; G12.23 Primary lateral sclerosis; E78.2 Mixed hyperlipidemia; R93.89 Abnormal findings on diagnostic imaging of other specified body structures; R25.2 Cramp and spasm; R20.2 Paresthesia of skin
CPT/HCPCS: 80048; 82306; 82330; 82728; 82784; 83540; 83550; 83721; 83735; 83883; 84100; 84155; 84165; 84443; 85025; 85379; 85651; 86140; 86334

== ENCOUNTER → 2024-02-01 11:18 | Outpatient (CLI) | payer MEDICARE, SELFPAY ==
--- NOTE | 2024-02-01 11:19 | DI.US.S_ITS ---
PROCEDURE: US PERIPH VENOUS LOW EXTREM LT INDICATIONS: FOOT SWELLING,PAIN; ELEVATED D-DIMER TECHNIQUE: Real-time imaging, as well as color and pulse Doppler interrogation, were performed of the lower extremity deep veins from the inguinal ligament to the popliteal fossa, with documentation of the visualized calf veins. COMPARISON: None. FINDINGS: The common femoral, femoral, popliteal, and the visualized calf veins are normally compressible, and free of intraluminal thrombus. Color and pulse Doppler demonstrate normal phasic intraluminal flow. There is normal augmentation response to distal compression maneuver. IMPRESSION: No findings of lower extremity deep venous thrombosis. Dictated by: Evelia Reyes M.D. on 02/01/2024 at 12:37 Approved by: Evelia Reyes M.D. on 02/01/2024 at 12:37
== END ==
PROVIDERS: PCP Family Medicine; Referring Provider Family Medicine; Visit Provider Family Medicine
DX: R60.0 Localized edema (principal); R79.89 Other specified abnormal findings of blood chemistry
CPT/HCPCS: 93971

== ENCOUNTER → 2024-05-19 11:36 | Outpatient (CLI) | payer OTHER, SELFPAY ==
[2024-05-19 19:22] LABS: HEMOLYSIS < 15 (0-50); Iron 65 ug/dL (37-170)
[2024-05-19 19:25] LABS: BUN Creatinine Ratio 24.5 (6-22); Blood Urea Nitrogen 24 mg/dL (7-17); Calcium 9.8 mg/dL (8.4-10.2); Carbon Dioxide 30 mmol/L (22-32); Chloride 100 mmol/L (98-107); Estimated Glomerular Filt Rate 60 mL/min (>60); Glucose 91 mg/dL (80-110); HEMOLYSIS < 15 (0-50); Potassium 4.1 mmol/L (3.4-5.1); Sodium 136 mmol/L (137-145)
[2024-05-19 19:31] LABS: Reticulocyte Count, Percent 0.3 % (1.1-2.6)
[2024-05-19 19:33] LABS: Add Manual Diff / Slide Review NO; Basophils Absolute Auto 0 /uL (0-100); Basophils Percent Auto 1.1 % (0-2); Eosinophils Absolute Auto 0 /uL (0-450); Eosinophils Percent Auto 0.1 % (2-4); Hematocrit 40.5 % (36-46); Hemoglobin 13.2 g/dL (12.0-16.0); Lymphocytes Absolute Auto 1000 /uL (1100-4500); Lymphocytes Percent Auto 25.4 % (25-40); Mean Corpuscular HGB Conc 32.6 % (30-36); Mean Corpuscular Hemoglobin 27.5 PG (26-34); Mean Corpuscular Volume 84.3 fL (80-100); Monocytes Absolute Auto 400 /uL (0-900); Monocytes Percent Auto 10.2 % (3-14); Neutrophils Absolute Auto 2400 /uL (1500-7000); Neutrophils Percent Auto 63.2 % (50-75); Percent Iron Saturation 22 % (15-50); Platelet Count 278 X10^3/uL (150-400); Red Cell Distribution Width 18.7 % (11.6-14.8); Total Iron Binding Capacity 298 ug/dL (265-497); Transferrin 285 mg/dL (206-381); White Blood Cell Count 3.8 X10^3/uL (4.5-11.0)
[2024-05-19 19:58] LABS: Ferritin 16 ng/mL (11-264)
== END ==
PROVIDERS: PCP Family Medicine; Visit Provider Family Medicine
DX: I10 Essential (primary) hypertension (principal); D50.9 Iron deficiency anemia, unspecified; R76.8 Other specified abnormal immunological findings in serum; C21.0 Malignant neoplasm of anus, unspecified
CPT/HCPCS: 80048; 82728; 83540; 83550; 83883; 85025; 85045

== ENCOUNTER → 2024-08-05 11:22 | Outpatient (CLI) | payer OTHER, SELFPAY ==
[2024-08-05 18:53] LABS: Add Manual Diff / Slide Review NO; Basophils Absolute Auto 0 /uL (0-100); Basophils Percent Auto 0.5 % (0-2); Eosinophils Absolute Auto 0 /uL (0-450); Hematocrit 39.3 % (36-46); Hemoglobin 12.8 g/dL (12.0-16.0); Lymphocytes Absolute Auto 600 /uL (1100-4500); Lymphocytes Percent Auto 15.1 % (25-40); Mean Corpuscular HGB Conc 32.6 % (30-36); Monocytes Absolute Auto 300 /uL (0-900); Monocytes Percent Auto 7.4 % (3-14); Neutrophils Absolute Auto 3100 /uL (1500-7000); Platelet Count 233 X10^3/uL (150-400); Red Blood Cell Count 4.42 X10^6/uL (4.0-5.2); Red Cell Distribution Width 14.6 % (11.6-14.8); White Blood Cell Count 4.1 X10^3/uL (4.5-11.0)
[2024-08-05 19:30] LABS: Ferritin 23 ng/mL (11-264)
[2024-08-08 13:36] LABS: Albumin 3.6 g/dL (2.9-4.4); Alpha-1-Globulin 0.3 g/dL (0.0-0.4); Alpha-2-Globulin 0.8 g/dL (0.4-1.0); Protein, Total 6.6 g/dL (6.0-8.5)
[2024-08-08 14:40] LABS: Immunoglobulin A, Serum 156 mg/dL (64-422); Immunoglobulin G,Serum 991 mg/dL (586-1602); Immunoglobulin M, Serum 133 mg/dL (26-217)
== END ==
PROVIDERS: PCP Family Medicine; Visit Provider Family Medicine
DX: D50.9 Iron deficiency anemia, unspecified (principal); R76.8 Other specified abnormal immunological findings in serum
CPT/HCPCS: 82728; 82784; 83883; 84155; 84165; 85025; 86334